=== PATIENT | female | born 1970 | race Hispanic/Latino ===

== ENCOUNTER 2022-01-30 21:28 | Observation (INO) | payer OTHER, SELFPAY ==
[~2022-01-30 21:28] MED LIST: Iopamidol 300 61% 100 ML VIAL FS ONE
[2022-01-30 22:24] LABS: #Monocytes 0.3 10x3/uL (0.0-1.1); #Neutrophils 6.3 10x3/uL (1.5-8.4); %Basophils 0.1 % (0.0-2.0); %Lymphocytes 6.4 % (18.0-47.0); %Monocytes 4.2 % (0.0-10.0); Hemoglobin 6.1 g/dL (12.0-15.5); Mean Corpuscular HGB CONC 25.5 g/dL (32.0-36.0); Mean Corpuscular Hemoglobin 15.4 pg (27.0-33.0); Mean Corpuscular Volume 60.2 fl (81.6-98.3); Mean Platelet Volume 9.2 fl (7.4-10.4); Platelet Count 340 10x3/uL (150-450); RBC Distribution Width 17.9 % (11.5-14.5); Red Blood Cell (RBC) Count 3.97 10x6/uL (3.90-5.03); White Blood Cell (WBC) Count 7.1 10x3/uL (3.5-10.5)
[2022-01-30 22:25] LABS: Anisocytosis SLIGHT = 6-15 cells (100X) (0-5/hpf); Hypochromia SLIGHT = 6-15 cells (100X) (0-5/hpf)
[2022-01-30 22:26] LABS: ALT (SGPT) 11 U/L (8-55); AST (SGOT) 11 U/L (5-34); Albumin 3.5 g/dL (3.5-5.0); Alkaline Phosphatase 61 U/L (40-110); Anion Gap 14 mmol/L (10-20); BUN (Urea Nitrogen) 9 mg/dL (7.0-18.7); Bilirubin, Total 0.4 mg/dL (0.2-1.2); Calc. Creatinine Clearance 0 mL/min (70-130); Calcium 7.9 mg/dL (7.8-10.44); Carbon Dioxide 19 mmol/L (22-29); Chloride 107 mmol/L (98-107); Elliptocytes SLIGHT = 2-5 cells (100X) (0-1/hpf); Estimated GFR 110; Globulin 3.1 g/dL (2.4-3.5); Glucose 152 mg/dL (70-105); Lipase 9 U/L (8-78); Platelet Morphology Comment Appears Adequate; Potassium 3.7 mmol/L (3.5-5.1); Protein, Total 6.6 g/dL (6.0-8.3); Sodium 136 mmol/L (136-145); Target Cells SLIGHT = 2-5 cells (100X) (0-1/hpf)
[2022-01-30] MEDS ORDERED: Ondansetron PF 4 MG/2 ML Vial ONE (22:36)
[2022-01-30 22:37] LABS: SARS-CoV-2 NAA Rapid Test Not Detected (NotDetected)
[2022-01-30 22:47] LABS: Bilirubin Neg (Negative); Blood, Urine Negative (Negative); Clarity Clear (Clear); Glucose, Urine (Dipstick) 50 mg/dL (Negative); Ketone, Urine 5 mg/dL (Negative); Leukocyte Negative (Negative); Nitrite Negative (Negative); Protein, Urine (Dipstick) 30 mg/dl (Neg-Trace); Urobilinogen Normal mg/dL (Less than 2)
[2022-01-30 22:50] LABS: Pregnancy Test - Urine (BHCG) Negative (Negative); Pregu Control Background? CLEAR/WHITE (CLR/WHITE); Pregu Control Bar Appear? YES (CONTROL BAR)
[2022-01-30 23:04] LABS: Bacteria/HPF None Seen HPF (None Seen); Mucous/LPF 1+ LPF (<2+); RBC/HPF 0-3 HPF (0-3); WBC/HPF 0-3 HPF (0-3)
[2022-01-31] MEDS ORDERED: Ketorolac Tromethamine 30 MG/ML VIAL ONE (00:17)
[2022-01-31] MEDS ORDERED: Dextrose 50% Abboject 50 ML SYRINGE SLOW IVP PRN (00:19)
[2022-01-31] MEDS ORDERED: Acetaminophen 325 MG TAB PO PRN (00:19)
[2022-01-31] MEDS ORDERED: Dextrose 5% in Water 1,000 ML IV PRN (00:19)
[2022-01-31 02:17] LABS: #Monocytes 0.3 10x3/uL (0.0-1.1); #Neutrophils 4.6 10x3/uL (1.5-8.4); %Basophils 0.2 % (0.0-2.0); %Lymphocytes 12.6 % (18.0-47.0); %Monocytes 5.8 % (0.0-10.0); Mean Corpuscular Hemoglobin 16.9 pg (27.0-33.0); Mean Corpuscular Volume 62.4 fl (81.6-98.3); Mean Platelet Volume 8.4 fl (7.4-10.4); Platelet Count 287 10x3/uL (150-450); RBC Distribution Width 20.9 % (11.5-14.5); Red Blood Cell (RBC) Count 4.15 10x6/uL (3.90-5.03); White Blood Cell (WBC) Count 5.7 10x3/uL (3.5-10.5)
[2022-01-31 02:41] VITALS: BMI 32.4
[2022-01-31 03:06] LABS: ALT (SGPT) 8 U/L (8-55); AST (SGOT) 9 U/L (5-34); Albumin 3.4 g/dL (3.5-5.0); Alkaline Phosphatase 58 U/L (40-110); Anion Gap 14 mmol/L (10-20); BUN (Urea Nitrogen) 7 mg/dL (7.0-18.7); Bilirubin, Total 0.6 mg/dL (0.2-1.2); Calc. Creatinine Clearance 116 mL/min (70-130); Calcium 7.8 mg/dL (7.8-10.44); Carbon Dioxide 19 mmol/L (22-29); Chloride 108 mmol/L (98-107); Estimated GFR 109; Globulin 3.1 g/dL (2.4-3.5); Glucose 105 mg/dL (70-105); Potassium 3.5 mmol/L (3.5-5.1); Protein, Total 6.5 g/dL (6.0-8.3); Sodium 137 mmol/L (136-145)
[2022-01-31] MEDS ORDERED: Ibuprofen 600 MG TAB PO PRN (06:15)
[2022-01-31 10:07] LABS: Hemoglobin 7.8 g/dL (12.0-15.5)
[2022-01-31 12:18] LABS: Hemoglobin A1c 7.9 % (4.0-6.0)
[2022-01-31] MEDS: Lactated Ringer's 1,000 ML IV SCH ×2 (14:21)
[2022-02-01] MEDS: Lactated Ringer's 1,000 ML IV SCH ×3 (00:02→16:03)
[2022-02-01] MEDS: Ondansetron PF 4 MG/2 ML Vial IVP PRN (03:18)
[2022-02-01 04:31] LABS: #Monocytes 0.4 10x3/uL (0.0-1.1); #Neutrophils 2.4 10x3/uL (1.5-8.4); %Basophils 0.5 % (0.0-2.0); %Lymphocytes 23.5 % (18.0-47.0); %Monocytes 11.1 % (0.0-10.0); %Neutrophils 64.6 % (40.0-75.0); Hemoglobin 7.8 g/dL (12.0-15.5); Mean Corpuscular HGB CONC 27.4 g/dL (32.0-36.0); Mean Corpuscular Hemoglobin 18.2 pg (27.0-33.0); Mean Corpuscular Volume 66.6 fl (81.6-98.3); Mean Platelet Volume 8.7 fl (7.4-10.4); Platelet Count 309 10x3/uL (150-450); RBC Distribution Width 23.3 % (11.5-14.5); Red Blood Cell (RBC) Count 4.28 10x6/uL (3.90-5.03); White Blood Cell (WBC) Count 3.8 10x3/uL (3.5-10.5)
[2022-02-01 04:54] LABS: Platelet Morphology Comment Appears Adequate
[2022-02-01 04:56] LABS: ALT (SGPT) 7 U/L (8-55); AST (SGOT) 9 U/L (5-34); Albumin 3.1 g/dL (3.5-5.0); Alkaline Phosphatase 53 U/L (40-110); Anion Gap 13 mmol/L (10-20); BUN (Urea Nitrogen) 5 mg/dL (7.0-18.7); Bilirubin, Total 0.4 mg/dL (0.2-1.2); Bite Cells SLIGHT = 2-5 cells (100X) (0-1/hpf); Calc. Creatinine Clearance 122 mL/min (70-130); Carbon Dioxide 21 mmol/L (22-29); Chloride 108 mmol/L (98-107); Elliptocytes SLIGHT = 2-5 cells (100X) (0-1/hpf); Estimated GFR 110; Glucose 205 mg/dL (70-105); Hypochromia MODERATE=16-30 cells (100X) (0-5/hpf); Macrocytosis SLIGHT = 6-15 cells (100X) (0-5/hpf); Microcytosis SLIGHT = 6-15 cells (100X) (0-5/hpf); Potassium 3.8 mmol/L (3.5-5.1); Protein, Total 6.1 g/dL (6.0-8.3); Schistocytes SLIGHT = 2-5 cells (100X) (0-1/hpf); Sodium 138 mmol/L (136-145); Target Cells SLIGHT = 2-5 cells (100X) (0-1/hpf)
[2022-02-01 04:57] LABS: Anisocytosis SLIGHT = 6-15 cells (100X) (0-5/hpf)
[2022-02-01] MEDS ORDERED: Ketorolac Tromethamine 30 MG/ML VIAL IVP SCH (15:15)
[2022-02-01] MEDS ORDERED: Scopolamine 1.5 mg/72 hour Patch TD SCH (16:00)
[2022-02-02] MEDS: Lactated Ringer's 1,000 ML IV SCH ×3 (01:33→15:02)
[2022-02-02 03:56] LABS: #Monocytes 0.5 10x3/uL (0.0-1.1); #Neutrophils 3.3 10x3/uL (1.5-8.4); %Basophils 0.2 % (0.0-2.0); %Eosinophils 0.2 % (0.0-6.0); %Lymphocytes 32.6 % (18.0-47.0); %Monocytes 8.8 % (0.0-10.0); Hemoglobin 7.8 g/dL (12.0-15.5); Mean Corpuscular HGB CONC 27.6 g/dL (32.0-36.0); Mean Corpuscular Hemoglobin 18.6 pg (27.0-33.0); Mean Corpuscular Volume 67.5 fl (81.6-98.3); Mean Platelet Volume 9.4 fl (7.4-10.4); Platelet Count 337 10x3/uL (150-450); RBC Distribution Width 23.6 % (11.5-14.5); Red Blood Cell (RBC) Count 4.19 10x6/uL (3.90-5.03); White Blood Cell (WBC) Count 5.6 10x3/uL (3.5-10.5)
[2022-02-02 04:18] LABS: Platelet Morphology Comment Appears Adequate
[2022-02-02 04:20] LABS: Anisocytosis SLIGHT = 6-15 cells (100X) (0-5/hpf); Elliptocytes SLIGHT = 2-5 cells (100X) (0-1/hpf); Hypochromia SLIGHT = 6-15 cells (100X) (0-5/hpf); Large Platelets SLIGHT; Macrocytosis SLIGHT = 6-15 cells (100X) (0-5/hpf); Microcytosis SLIGHT = 6-15 cells (100X) (0-5/hpf); Polychromasia SLIGHT = 2-3 cells (100X) (0-2/hpf); Schistocytes SLIGHT = 2-5 cells (100X) (0-1/hpf)
[2022-02-02 04:27] LABS: ALT (SGPT) 9 U/L (8-55); AST (SGOT) 10 U/L (5-34); Alkaline Phosphatase 51 U/L (40-110); Anion Gap 12 mmol/L (10-20); BUN (Urea Nitrogen) 6 mg/dL (7.0-18.7); Bilirubin, Total 0.3 mg/dL (0.2-1.2); Calc. Creatinine Clearance 131 mL/min (70-130); Calcium 8.1 mg/dL (7.8-10.44); Carbon Dioxide 22 mmol/L (22-29); Chloride 107 mmol/L (98-107); Estimated GFR 112; Globulin 2.7 g/dL (2.4-3.5); Glucose 99 mg/dL (70-105); Potassium 3.2 mmol/L (3.5-5.1); Protein, Total 5.7 g/dL (6.0-8.3); Sodium 138 mmol/L (136-145)
[2022-02-02] MEDS ORDERED: EPINEPHrine 1 MG/ML AMP ONE (10:42)
[2022-02-02] MEDS ORDERED: Iopamidol 30 ML ONE (10:43)
[2022-02-02] MEDS ORDERED: Bupivacaine PF 0.5% 30 ML VIAL ONE (10:43)
[2022-02-02 11:31] LABS: Ref Lab Test Ordered IBUPROFEN; Reference Lab Name LABCORP
[2022-02-02] MEDS ORDERED: Ondansetron PF 4 MG/2 ML Vial ONE (12:30)
[2022-02-02] MEDS ORDERED: Lidocaine 1% PF 5 ML VIAL ONE (12:30)
[2022-02-02] MEDS ORDERED: Dexamethasone 4 mg/ml Vial ONE (12:30)
[2022-02-02] MEDS ORDERED: Rocuronium Bromide 10 MG/ML (10ML VIAL) ONE (12:30)
[2022-02-02] MEDS ORDERED: PROPOFOL 20 ML ONE (12:30)
[2022-02-02] MEDS ORDERED: Fentanyl 100 MCG/2 ML VIAL ONE ×2 (12:40→14:31)
[2022-02-02] MEDS ORDERED: Midazolam HCl 2 mg/2 ml Vial ONE (12:40)
[2022-02-02] MEDS ORDERED: CEFAZOLIN 1 GM VIAL ONE (12:52)
[2022-02-02] MEDS ORDERED: SUGAMMADEX SODIUM 200 MG/2 ML VIAL ONE (13:50)
[2022-02-02] MEDS ORDERED: Acetaminophen 500 MG TAB PO PRN (14:22)
[2022-02-02] MEDS ORDERED: Acetaminophen 500 MG TAB PO SCH (14:30)
[2022-02-02] MEDS: traMADol HCl 50 MG TAB PO PRN (16:49)
[2022-02-02] MEDS: Ondansetron PF 4 MG/2 ML Vial IVP PRN (17:07)
[2022-02-02] MEDS ORDERED: Simethicone Chewable 80 MG TAB PO SCH (18:45)
[2022-02-03 04:40] LABS: Hemoglobin 8.3 g/dL (12.0-15.5); Mean Corpuscular HGB CONC 27.8 g/dL (32.0-36.0); Mean Corpuscular Hemoglobin 18.3 pg (27.0-33.0); Mean Platelet Volume 9.1 fl (7.4-10.4); Platelet Count 356 10x3/uL (150-450); RBC Distribution Width 24.2 % (11.5-14.5); Red Blood Cell (RBC) Count 4.53 10x6/uL (3.90-5.03); White Blood Cell (WBC) Count 7.8 10x3/uL (3.5-10.5)
[2022-02-03 04:59] LABS: ALT (SGPT) 17 U/L (8-55); AST (SGOT) 24 U/L (5-34); Alkaline Phosphatase 49 U/L (40-110); Anion Gap 14 mmol/L (10-20); BUN (Urea Nitrogen) 8 mg/dL (7.0-18.7); Bilirubin, Total 0.3 mg/dL (0.2-1.2); Calc. Creatinine Clearance 126 mL/min (70-130); Calcium 8.2 mg/dL (7.8-10.44); Carbon Dioxide 22 mmol/L (22-29); Chloride 103 mmol/L (98-107); Estimated GFR 111; Globulin 2.7 g/dL (2.4-3.5); Glucose 111 mg/dL (70-105); Potassium 3.4 mmol/L (3.5-5.1); Protein, Total 5.7 g/dL (6.0-8.3); Sodium 136 mmol/L (136-145)
[2022-02-03 06:10] LABS: MDiff Complete? YES; Manual Diff?? YES
[2022-02-03 07:19] LABS: Band 2 % (5-11); Lymphocytes 16 % (21-51); Monocytes 1 % (0-10); Neutrophil 81 % (42-75); Platelet Morphology Comment Appears Adequate
[2022-02-03 07:22] LABS: Anisocytosis MODERATE=16-30 cells (100X) (0-5/hpf); Elliptocytes SLIGHT = 2-5 cells (100X) (0-1/hpf); Hypochromia SLIGHT = 6-15 cells (100X) (0-5/hpf); Macrocytosis SLIGHT = 6-15 cells (100X) (0-5/hpf); Microcytosis SLIGHT = 6-15 cells (100X) (0-5/hpf); Target Cells SLIGHT = 2-5 cells (100X) (0-1/hpf); Tear Drops SLIGHT = 2-5 cells (100X) (0-1/hpf)
[2022-02-03 07:25] VITALS: TEMP 98.4
[2022-02-03 07:47] VITALS: BP 121/58
[2022-02-03] MEDS: traMADol HCl 50 MG TAB PO PRN ×2 (08:16→12:56)
[2022-02-03] MEDS: Ondansetron PF 4 MG/2 ML Vial IVP PRN (10:03)
== END 2022-02-03 13:05 | disposition home or self-care (01) ==
LOC: CSHERS 21:28 → CSHPP 01-31 01:57
PROVIDERS: ADMIT Obstetrics & Gynecology; ATTEND Obstetrics & Gynecology
PROC: 0FT44ZZ Resection of Gallbladder, Percutaneous Endoscopic Approach (ICD-10-PCS; principal; 2022-02-02)
PROC: BF101ZZ Fluoroscopy of Bile Ducts using Low Osmolar Contrast (ICD-10-PCS; 2022-02-02)
PROC: 0UT14ZZ Resection of Left Ovary, Percutaneous Endoscopic Approach (ICD-10-PCS; 2022-02-02)
PROC: 0UT64ZZ Resection of Left Fallopian Tube, Percutaneous Endoscopic Approach (ICD-10-PCS; 2022-02-02)
PROC: 0UB98ZX Excision of Uterus, Via Natural or Artificial Opening Endoscopic, Diagnostic (ICD-10-PCS; 2022-02-02)
DX: K80.10 Calculus of gallbladder with chronic cholecystitis without obstruction (principal); K83.8 Other specified diseases of biliary tract; N83.12 Corpus luteum cyst of left ovary; N83.8 Other noninflammatory disorders of ovary, fallopian tube and broad ligament; N84.1 Polyp of cervix uteri; N84.0 Polyp of corpus uteri; D25.9 Leiomyoma of uterus, unspecified; D64.9 Anemia, unspecified; R07.9 Chest pain, unspecified; E11.9 Type 2 diabetes mellitus without complications; Z20.822 Contact with and (suspected) exposure to COVID-19
CPT/HCPCS: 36415; 36416; 36430; 47532; 51701; 71045; 74177; 76700; 76856; 80053; 81003; 81015; 81025; 83036; 83690; 84484; 85025; 86850; 86900; 86901; 88304; 88305; 93005; 94760; 96374; 96375; 96376; C1713; G0378; J0171; J0690; J1100; J1610; J1885; J2250; J2405; J2704; J3010; J7120; P9016; Q9967; S0020

== ENCOUNTER 2022-02-05 09:42 | Emergency (ER) | payer SELFPAY ==
[2022-02-05 10:26] LABS: #Eosinphils 0.1 10x3/uL (0.0-0.5); #Monocytes 0.4 10x3/uL (0.0-1.1); #Neutrophils 4.4 10x3/uL (1.5-8.4); %Basophils 0.3 % (0.0-2.0); %Eosinophils 0.8 % (0.0-6.0); %Lymphocytes 21.5 % (18.0-47.0); %Monocytes 6.6 % (0.0-10.0); %Neutrophils 70.6 % (40.0-75.0); Hemoglobin 8.1 g/dL (12.0-15.5); Mean Corpuscular HGB CONC 27.9 g/dL (32.0-36.0); Mean Corpuscular Hemoglobin 18.4 pg (27.0-33.0); Mean Corpuscular Volume 65.8 fl (81.6-98.3); Platelet Count 427 10x3/uL (150-450); RBC Distribution Width 24.1 % (11.5-14.5); Red Blood Cell (RBC) Count 4.41 10x6/uL (3.90-5.03); White Blood Cell (WBC) Count 6.2 10x3/uL (3.5-10.5)
[2022-02-05 10:28] LABS: ALT (SGPT) 16 U/L (8-55); AST (SGOT) 13 U/L (5-34); Albumin 3.2 g/dL (3.5-5.0); Alkaline Phosphatase 54 U/L (40-110); Anion Gap 14 mmol/L (10-20); BUN (Urea Nitrogen) 4 mg/dL (7.0-18.7); Bilirubin, Total 0.5 mg/dL (0.2-1.2); Calc. Creatinine Clearance 0 mL/min (70-130); Calcium 8.2 mg/dL (7.8-10.44); Carbon Dioxide 27 mmol/L (22-29); Chloride 105 mmol/L (98-107); Estimated GFR 111; Glucose 75 mg/dL (70-105); Potassium 3.2 mmol/L (3.5-5.1); Protein, Total 6.2 g/dL (6.0-8.3); Sodium 143 mmol/L (136-145)
[2022-02-05] MEDS ORDERED: Potassium Chloride 20 MEQ TAB ONE (11:10)
== END 2022-02-05 11:33 | disposition home or self-care (01) ==
LOC: CSHERS 09:42
DX: N93.9 Abnormal uterine and vaginal bleeding, unspecified (principal); E11.9 Type 2 diabetes mellitus without complications
CPT/HCPCS: 80053; 85025; 93005; 99284

== ENCOUNTER 2022-09-27 15:02 | Outpatient (CLI) | payer OTHER ==
[2022-09-27 15:57] LABS: Hemoglobin 7.6 g/dL (12.0-15.5); Mean Corpuscular HGB CONC 25.3 g/dL (32.0-36.0); Mean Corpuscular Hemoglobin 16.6 pg (27.0-33.0); Mean Corpuscular Volume 65.4 fl (81.6-98.3); Mean Platelet Volume 9.2 fl (7.4-10.4); Platelet Count 456 10x3/uL (150-450); Red Blood Cell (RBC) Count 4.59 10x6/uL (3.90-5.03); White Blood Cell (WBC) Count 5.8 10x3/uL (3.5-10.5)
[2022-09-27 16:08] LABS: BHCG - Serum Negative (NEGATIVE); Pregs Control Background? CLEAR/WHITE (CLR/WHITE); Pregs Control Bar Appear? YES (CONTROL BAR)
== END 2022-09-27 15:03 | disposition home or self-care (01) ==
LOC: CSHLAB 15:02
PROVIDERS: ATTEND Obstetrics & Gynecology
DX: Z01.812 Encounter for preprocedural laboratory examination (principal); D25.9 Leiomyoma of uterus, unspecified
CPT/HCPCS: 84703; 85027; 86850; 86900; 86901

== ENCOUNTER 2022-09-29 07:31 | Day surgery (SDC) | payer OTHER ==
[2022-09-27 11:49] VITALS: BMI 30.2
[2022-09-29] MEDS ORDERED: Famotidine/PF 20 mg/2ml Vial ONE ×2 (08:01)
[2022-09-29] MEDS ORDERED: CeleCOXIB 100 MG CAP ONE (08:01)
[2022-09-29] MEDS ORDERED: Gabapentin 300 MG CAP ONE (08:01)
[2022-09-29] MEDS ORDERED: Bupivacaine HCl 0.5%/Epinephrine 1:200,000/PF 30 ml Vial ONE (09:12)
[2022-09-29] MEDS ORDERED: PROPOFOL 20 ML ONE (09:13)
[2022-09-29] MEDS ORDERED: Lidocaine 1% PF 5 ML VIAL ONE (09:14)
[2022-09-29] MEDS ORDERED: Glycopyrrolate 0.2 MG/ML 5 ML SYRINGE ONE (09:14)
[2022-09-29] MEDS ORDERED: Rocuronium Bromide 10 MG/ML (10ML VIAL) ONE (09:14)
[2022-09-29] MEDS ORDERED: Dexamethasone 20 MG/5 ML VIAL ONE (09:14)
[2022-09-29] MEDS ORDERED: Fentanyl 100 MCG/2 ML VIAL ONE ×2 (09:14→12:58)
[2022-09-29] MEDS ORDERED: Ketorolac Tromethamine 30 MG/ML VIAL ONE (09:14)
[2022-09-29] MEDS ORDERED: Midazolam HCl 2 mg/2 ml Vial ONE (09:14)
[2022-09-29] MEDS ORDERED: Ondansetron PF 4 MG/2 ML Vial ONE ×2 (09:14→12:42)
[2022-09-29] MEDS ORDERED: CEFAZOLIN 2 GM VIAL ONE (09:19)
[2022-09-29] MEDS ORDERED: Promethazine HCl 25 MG/ML VIAL ONE (14:23)
== END 2022-09-29 15:00 | disposition home or self-care (01) ==
LOC: CSHSDC 07:31
PROVIDERS: ATTEND Obstetrics & Gynecology
PROC: 0UT54ZZ Resection of Right Fallopian Tube, Percutaneous Endoscopic Approach (ICD-10-PCS; principal; 2022-09-29)
PROC: 0UT94ZZ Resection of Uterus, Percutaneous Endoscopic Approach (ICD-10-PCS; principal; 2022-09-29)
DX: D25.9 Leiomyoma of uterus, unspecified (principal); D64.9 Anemia, unspecified; N72 Inflammatory disease of cervix uteri; N87.9 Dysplasia of cervix uteri, unspecified; N92.0 Excessive and frequent menstruation with regular cycle; N88.8 Other specified noninflammatory disorders of cervix uteri; N83.8 Other noninflammatory disorders of ovary, fallopian tube and broad ligament; Z90.721 Acquired absence of ovaries, unilateral
CPT/HCPCS: 88307; C1776; J1100; J1885; J2250; J2405; J2550; J2704; J3010; S0028